=== PATIENT | male | born 1945 | race Hispanic/Latino ===

== ENCOUNTER 2024-08-18 12:27 | Emergency (ER) | payer SELFPAY ==
[~2024-08-18] VITALS: Ht 172.7 cm; Wt 83.9 kg
[2024-08-18 12:28] VITALS: PULSE 81; RESP 18; TEMP 98.9
[2024-08-18] MEDS ORDERED: CEFDINIR300 MG PO (14:28)
[2024-08-18 16:42] VITALS: BP 149/96; PULSE 84; RESP 18; TEMP 98; O2SAT 98
== END 2024-08-18 15:43 | disposition home or self-care (01) ==
LOC: ER 13:57
DX: R33.9 Retention of urine, unspecified (principal); I10 Essential (primary) hypertension
CPT/HCPCS: 51700; 99284

== ENCOUNTER 2024-08-23 07:31 | Emergency (ER) | payer SELFPAY ==
[~2024-08-23] VITALS: Ht 172.7 cm; Wt 83.9 kg
[~2024-08-23 07:31] MED LIST: CEFDINIR300 MG PO
[2024-08-23 07:36] VITALS: PULSE 88; RESP 17; TEMP 98.4; O2SAT 98
== END 2024-08-23 09:04 | disposition home or self-care (01) ==
LOC: ER 07:58
DX: R33.9 Retention of urine, unspecified (principal); I10 Essential (primary) hypertension
CPT/HCPCS: 51700; 99283